=== PATIENT | female | born 1930 | race Caucasian/White ===

== ENCOUNTER → 2017-02-07 | Outpatient (CLI) | payer MEDICARE, OTHER | END | disposition home or self-care (01) | LOC: GMAH 10:47 | PROVIDERS: ATTEND Family Medicine | DX: E03.8 Other specified hypothyroidism (principal); E78.2 Mixed hyperlipidemia ==

== ENCOUNTER → 2017-07-20 | Outpatient (CLI) | payer MEDICARE, OTHER ==
--- NOTE | 2017-07-21 10:38 | CT ---
PROCEDURE: Head HISTORY: ALTERED MENTAL STATUS Indication: Same as above Comparison: None Technique: CT of the head was done without intravenous contrast was done in the orthogonal planes. This exam was performed according to our departmental dose-optimization program, which includes automated exposure control, adjustment of the mA and/or KV according to the patient's size and/or use of iterative reconstruction technique. FINDINGS: There is no intracranial hemorrhage, midline shift mass effect or acute focal infarct. There is prominence of the sylvian fissures and the cortical sulci reflecting age related volume loss. There is periventricular and deep white matter low attenuation, most likely related to small vessel white matter ischemic disease. Asymmetric left superior frontal lobe atrophy is noted Intracranial vascular calcifications are seen. If clinical concern exists regarding an acute ischemic/vascular pathology being responsible for patient's symptomatology, an MRI of the brain is more sensitive than the current study, in ruling out such a possibility. There is good dominique/white matter differentiation. The ventricular system is normal. The mastoid air cells are unremarkable . The paranasal sinuses are unremarkable . There is no visualization of acute fractures involving the calvarium or the skull base. IMPRESSION: There is no acute intracranial abnormality. Age related and chronic involutional changes are seen. 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
== END | disposition home or self-care (01) ==
LOC: CT 14:04
PROVIDERS: ATTEND Family Medicine
DX: R41.82 Altered mental status, unspecified (principal)

== ENCOUNTER → 2017-10-25 | Outpatient (CLI) | payer MEDICARE, OTHER ==
--- NOTE | 2017-10-26 07:39 | RAD ---
EXAM DESCRIPTION: Knee,Left Complete CLINICAL HISTORY: 87 years, Female, PAIN IN LEFT KNEE COMPARISON: None TECHNIQUE: Three views of the left knee FINDINGS: No fracture or dislocation. Bones appear mildly osteopenic with prominent trabecular pattern. Severe narrowing of the medial compartment is seen on the frontal view. Findings are consistent with complete cartilage loss with sclerosis and eburnation of the medial femoral condyle and medial tibial plateau. Osseous densities medial to the joint could be loose bodies or extruded calcified meniscus. Spurring is seen along the medial and lateral joint lines and at the tibial spines. There is varus orientation of the tibia and fibula relative to the femur. Lateral view shows normal position of the patella. Prominent posterior inferior patellar spurring is seen with anterior femoral trochlear spurring. Positive suprapatellar knee joint effusion of moderate size. Normal contour of quadriceps and patellar tendons. Mild lateral tilt of the patella is seen on patellar sunrise view. No subluxation. Spurring is seen along the medial and lateral aspects of the patellofemoral joint. IMPRESSION: Advanced osteoarthrosis of the left knee as described. Electronically signed by: Ramone Alvarez MD 10/26/2017 7:[address] [facility]
--- NOTE | 2017-10-26 07:40 | RAD ---
EXAM DESCRIPTION: Pelvis CLINICAL HISTORY: 87 years Female, PAIN IN LEFT HIP COMPARISON: None. TECHNIQUE: Frontal x-ray view of the pelvis FINDINGS: No hip dislocation or proximal femoral fracture. Intact bones of the pelvic ring. Degenerative narrowing of the lower lumbar discs is seen with incidental note of S1 spina bifida occulta. No sacral fracture. Pelvic calcifications are most likely vascular. IMPRESSION: Negative for fracture or dislocation. Electronically signed by: Ramone Alvarez MD 10/26/2017 7:39 AM [facility]
== END ==
LOC: RAD 09:05
PROVIDERS: ATTEND Orthopaedic Surgery
DX: M25.562 Pain in left knee (principal); M25.552 Pain in left hip; M17.12 Unilateral primary osteoarthritis, left knee

== ENCOUNTER → 2018-04-23 | Outpatient (CLI) | payer MEDICARE, OTHER | LOC: GMAH 11:14 | PROVIDERS: ATTEND Family Medicine | DX: E03.8 Other specified hypothyroidism (principal); E78.2 Mixed hyperlipidemia ==

== ENCOUNTER → 2018-06-11 | Outpatient (CLI) | payer MEDICARE, OTHER ==
--- NOTE | 2018-06-12 14:31 | MAM ---
EXAM DESCRIPTION: 3D Screening BILATERAL : Digital Mammography. CLINICAL HISTORY: 88 years Female SCREENING . Possible bloody left nipple discharge. Mother with breast cancer and remote family history of breast cancer. Childbirth. Postmenopausal. No HRT. Lifetime risk of developing breast cancer (Tyrer-Cuzick model)(%): Calculated due to age. COMPARISON: . 2-D digital screening bilateral study 07/17/2016 TECHNIQUE: Bilateral CC and MLO projection full-field images, Digital tomosynthesis mammographic technique. Bilateral digital 2-D full-field MLO images. CAD not utilized. FINDINGS: The breast parenchymal density pattern is: Scattered areas of fibroglandular density. No skin thickening or nipple retraction. . Bilateral solitary microcalcifications, bilateral secretory calcifications, and bilateral vascular calcifications. Coarse calcifications left breast. No new focal, stellate mass or density, focal asymmetry , and no suspicious microcalcifications bilaterally. Bilateral calcifications have increased since the prior study. IMPRESSION: Benign exam. BIRAD CATEGORY: 2 BENIGN FINDINGS. RECOMMENDATIONS: FOLLOW UP: Routine digital bilateral screening, one year interval from May 2018. Written communication explaining the IMPRESSION and follow-up, will be mailed to the patient and referring health care provider. According to the [employer], yearly mammograms are recommended starting at age 40 and continuing as long as a woman is in good health. Any breast change noted on a breast self-exam should be reported promptly to the patient's healthcare provider. Breast MRI is recommended for women with an approximately 20-25% or greater lifetime risk of breast cancer, including women with a strong family history of breast or ovarian cancer and women who have been treated for Hodgkin's disease. A negative mammographic report should not delay tissue diagnosis in patients with significant clinical history or physical findings. Extremely dense breast tissue limits the sensitivity of digital mammography. Electronically signed by: Prashant Rojas MD 06/12/2018 2:30 PM CDT
== END ==
LOC: MAMMO 08:30
PROVIDERS: ATTEND Family Medicine
DX: Z12.31 Encounter for screening mammogram for malignant neoplasm of breast (principal)

== ENCOUNTER → 2018-12-12 | Outpatient (CLI) | payer MEDICARE ==
--- NOTE | 2018-12-13 08:05 | RAD ---
EXAM DESCRIPTION: Left knee, 4 radiographs CLINICAL HISTORY: PAIN IN LEFT KNEE FINDINGS/ IMPRESSION: Severe medial femorotibial osteoarthritis with [id number] contact, sclerosis irregularity and joint line osteophytes. Small lateral femorotibial and moderate-sized patellofemoral osteophytes. Small suprapatellar joint effusion. Medial swelling. No fracture Electronically signed by: Edson Eng MD 12/13/2018 8:03 AM CDT
== END ==
LOC: RAD 10:01
PROVIDERS: ATTEND Orthopaedic Surgery
DX: M17.12 Unilateral primary osteoarthritis, left knee (principal)

== ENCOUNTER → 2018-12-17 | Outpatient (CLI) | payer MEDICARE ==
--- NOTE | 2018-12-18 08:06 | MRI ---
Study: MRI of the Left Knee. Indication: KNEE PAIN Technique: Multiplanar, multi sequence MRI of the left knee was obtained without intravenous contrast. Comparison: None. Findings: Moderate mucoid degeneration ACL with mild changes PCL. No acute tear. Large multilobulated ganglion versus para meniscal cyst tracking along the anteromedial joint line with significant uplifting of the MCL and medial retinaculum. It measures up to 7.2 cm AP by 6.2 cm transverse by 4.8 cm craniocaudal with marked internal septations and complexity. There is maceration and attenuation throughout the posterior horn and body medial meniscus. Severe medial compartment osteoarthritis with complete grade 4 chondral loss, significant cortical remodeling, and multifocal subchondral marrow change. Lateral collateral ligament complex intact. Subtle undersurface tear junction anterior horn and root lateral meniscus. Patchy areas of grade 3 chondral thinning and surface irregularity throughout the lateral compartment. Moderate size knee effusion. No acute fracture. Patellofemoral extensor mechanism intact. Patella normally located. There is a grade 1 and 2 chondral thinning throughout the patellofemoral compartment. Small tricompartmental joint line osteophytes. Impression: Mucoid degeneration ACL and PCL without acute tear. Maceration medial meniscus. Undersurface tearing anterior horn/root lateral meniscus. Tricompartmental osteoarthritis, most pronounced at the medial compartment where there are severe changes. Large multilobulated ganglion versus para meniscal cyst along the anteromedial joint line as above. Moderate size knee effusion. Electronically signed by: Bart Kaiser MD 12/18/2018 8:03 AM CDT
== END ==
LOC: MRI 13:01
PROVIDERS: ATTEND Orthopaedic Surgery
DX: M23.301 Other meniscus derangements, unspecified lateral meniscus, left knee (principal); S83.282A Other tear of lateral meniscus, current injury, left knee, initial encounter; M67.462 Ganglion, left knee; M17.12 Unilateral primary osteoarthritis, left knee

== ENCOUNTER → 2018-12-31 | Outpatient (CLI) | payer MEDICARE | LOC: RESP 09:26 | PROVIDERS: ATTEND Orthopaedic Surgery | DX: Z01.818 Encounter for other preprocedural examination (principal) ==

== ENCOUNTER 2019-01-29 21:09 | Emergency (ER) | payer MEDICARE ==
[2019-01-29] MEDS ORDERED: SODIUM CHLORIDE 0.9% (FLUSH) 10 ML SYG IV PRN (21:12)
--- NOTE | 2019-01-29 21:38 | CT ---
EXAM: CT Head Without Intravenous Contrast CLINICAL HISTORY: The patient is 89 years old and is Female; possible stroke TECHNIQUE: Axial computed tomography images of the head/brain without intravenous contrast. Sagittal and coronal reformatted images were created and reviewed. This CT exam was performed using one or more of the following dose reduction techniques: automated exposure control, adjustment of the mA and/or kV according to patient size, and/or use of iterative reconstruction technique. COMPARISON: July 20, 2017 FINDINGS: Brain: Periventricular and deep white matter hypodensities, most commonly due to nonspecific white matter chronic microvascular ischemia. Mild cerebral atrophy. No hemorrhage. Ventricles: Unremarkable. No ventriculomegaly. Bones/joints: Unremarkable. No acute fracture. Soft tissues: Unremarkable. Vasculature: Vascular calcifications. Sinuses: Unremarkable as visualized. No acute sinusitis. Mastoid air cells: Unremarkable as visualized. No mastoid effusion. IMPRESSION: No acute intracranial findings. Mild cerebral atrophy and nonspecific chronic microvascular ischemic changes. If there is persistent concern for acute ischemia recommend obtaining MRI for further evaluation. Electronically signed by: Gilberto Aguilar MD 01/29/2019 9:36 PM CDT
--- NOTE | 2019-01-29 21:39 | RAD ---
EXAM: XR Chest, 1 View CLINICAL HISTORY: 89 years old and is Female; possible stroke TECHNIQUE: Frontal view of the chest. COMPARISON: No relevant prior studies available. FINDINGS: Limitations: None. Lungs: Unremarkable. No consolidation. Pleural space: Unremarkable. No pneumothorax. Heart: Unremarkable. No cardiomegaly. Mediastinum: Unremarkable. Bones/joints: Unremarkable. IMPRESSION: No acute findings. Electronically signed by: Ashtyn Quintero MD 01/29/2019 9:37 PM CDT
--- NOTE | 2019-01-29 22:04 | ED.PDOC ---
History of Present Illness - General Chief Complaint: Neuro Symptoms/Deficits Stated Complaint: possible stroke Time Seen by Provider: 01/29/19 21:16 Source: family Exam Limitations: no limitations - History of Present Illness Initial Comments: Missy Narvaez 89 y/o female brought by EMS after she was found to have difficulty with her speech and was noted to have right sided facial droop as stated by jose a at about 1930H.Initially she was in her chair watching TV but but asked where the remote control was and was holding unto it unable to name recall it.then had above symptoms.No upper or lower extremity weakness,no blurry vision reported .EMS was then called and on their arrival symptoms had gradually been resolving.No history of previous CVA or AK. Timing/Duration: 1-3 hours Severity: moderate Episode Description: see hpi Improving Factors: nothing Worsening Factors: nothing Associated Symptoms: other - see hpi Allergies/Adverse Reactions: Allergies No Known Drug Allergy Allergy (Verified 01/29/19 22:05) Home Medications: Ambulatory Orders Amlodipine Besylate 1 tablet PO DAILY 01/27/19 Azilsartan Medoxomil-Chlorthal [Edarbyclor] 1 tab PO DAILY 01/27/19 Digoxin [Digox] 1 tablet PO DAILY 01/27/19 Donepezil Hydrochloride [Donepezil HCl] 1 tablet PO DAILY 01/27/19 Fenofibrate 160 mg PO DAILY 01/27/19 Levothyroxine Sodium [Euthyrox] 100 mcg PO DAILY 01/27/19 Lovastatin 1 tablet PO DAILY 01/27/19 Metoprolol Tartrate [Lopressor] 25 tablet PO BID 01/27/19 Pantoprazole Tablet [Protonix] 40 mg PO ACBK 01/27/19 Propylene Glycol (Ophth) [Systane Balance Restorati] 0.6 % OP DAILY 01/27/19 diphenhydrAMINE HCL [Benadryl] 25 mg PO PRN 01/27/19 Review of Systems - Review of Systems Constitutional: States: no symptoms reported EENTM: States: no symptoms reported Respiratory: States: no symptoms reported Cardiology: States: no symptoms reported Gastrointestinal/Abdominal: States: no symptoms reported Genitourinary: States: no symptoms reported Musculoskeletal: States: no symptoms reported Neurological: States: see HPI Past Medical History (General) - Patient Medical History Hx Cardiac Disorders: Yes Hx Other PMH: Yes - hypothyroidism Surgical History: appendectomy, cholecystectomy, tonsillectomy, other - hysterectomy,cataract - Vaccination History Hx Influenza Vaccination: Yes - Social History Hx Alcohol Use: No Hx Substance Use: No Hx Physical Abuse: No Hx Emotional Abuse: No Hx Suspected Abuse: No - Activities of Daily Living Patient Lives Alone: No Grooming Ability: Independent Eating (Feeding) Ability: Independent Toileting Ability: Independent Family Medical History - Family History Mother Living Status: Cause of : stroke Hx Family Stroke: Yes Physical Exam - Physical Exam General Appearance: Alert, Comfortable, No apparent distress Eye Exam: bilateral normal ENT Exam: normal ENT inspection, hearing grossly normal Neck: non-tender, supple, other - right carotid bruit Respiratory: lungs clear, normal breath sounds, no respiratory distress Cardiovascular/Chest: normal peripheral pulses, regular rate, rhythm, no murmur, diastolic murmur Peripheral Pulses: radial,right: 2+, radial,left: 2+ Gastrointestinal/Abdominal: normal bowel sounds, non tender, soft, no organomegaly Back Exam: no CVA tenderness, no vertebral tenderness Extremities Exam: non-tender, normal range of motion Mental Status: alert, oriented x 3 health claims 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 Exam: normal hearing, normal speech Motor/Sensory: no motor deficit, no sensory deficit, no pronator drift Skin Exam: normal color, warm/dry Progress - Progress Progress: 01/29/19 22:18 01/29/19 21:12 IV Care:Saline Lock per Protoc QSHIFT Telemetry .ONCE Sodium Chloride 0.9% (Flush) [Saline Flush Syringe] 10 ml IV PRN PRN 01/29/19 21:15 EKG STAT 01/29/19 22:04 DIGOXIN Stat 01/29/19 22:12 TSH [THYROID STIMULATING HORMONE] Stat Laboratory Results - last 24 hr 01/29/19 01/29/19 01/29/19 21:05 21:05 21:05 WBC 5.9 RBC 4.44 Hgb 12.6 Hct 38.4 MCV 86.6 MCH 28.5 MCHC 32.9 L RDW 13.7 Plt Count 302 MPV 8.7 Absolute Neuts (auto) 2.60 Absolute Lymphs (auto) 2.40 Absolute Monos (auto) 0.70 Absolute Eos (auto) 0.10 Absolute Basos (auto) 0.00 Neutrophils % 44.7 Lymphocytes % 41.2 Monocytes % 12.4 H Eosinophils % 1.1 Basophils % 0.6 PT 10.4 INR 1.04 PTT (SP) 27.7 Sodium 132 L Potassium 4.0 Chloride 97 L Carbon Dioxide 22 Anion Gap 17.0 BUN 32 H Creatinine 1.25 BUN/Creatinine Ratio 25.6 H POC Glucose Random Glucose 119 H Serum Osmolality 272.6 L Calcium 10.5 H Total Bilirubin 0.7 AST 23 ALT 25 Alkaline Phosphatase 29 L Creatine Kinase 132 CK-MB (CK-2) 5.7 H* CK-MB (CK-2) % Not Reportable Troponin I 0.02 Serum Total Protein 7.7 Albumin 4.2 Globulin 3.5 Albumin/Globulin Ratio 1.2 01/29/19 21:05 WBC RBC Hgb Hct MCV MCH MCHC RDW Plt Count MPV Absolute Neuts (auto) Absolute Lymphs (auto) Absolute Monos (auto) Absolute Eos (auto) Absolute Basos (auto) Neutrophils % Lymphocytes % Monocytes % Eosinophils % Basophils % PT INR PTT (SP) Sodium Potassium Chloride Carbon Dioxide Anion Gap BUN Creatinine BUN/Creatinine Ratio POC Glucose 107 H Random Glucose Serum Osmolality Calcium Total Bilirubin AST ALT Alkaline Phosphatase Creatine Kinase CK-MB (CK-2) CK-MB (CK-2) % Troponin I Serum Total Protein Albumin Globulin Albumin/Globulin Ratio 01/29/19 22:22 Discuss case with neurologist-telemedicine and called back no indication for t- pa at this time her neurologic abnormalities resolved ;recommended admit for hospital OBS and Brain MRI in am 01/29/19 22:55 - Results/Orders Results/Orders: 01/29/19 21:05 TSH [THYROID STIMULATING HORMONE] Stat 01/29/19 21:12 IV Care:Saline Lock per Protoc QSHIFT Telemetry .ONCE Sodium Chloride 0.9% (Flush) [Saline Flush Syringe] 10 ml IV PRN PRN 01/29/19 21:15 EKG STAT 01/29/19 22:45 UA [URINALYSIS] Stat Laboratory Results - last 24 hr 01/29/19 01/29/19 01/29/19 21:05 21:05 21:05 WBC 5.9 RBC 4.44 Hgb 12.6 Hct 38.4 MCV 86.6 MCH 28.5 MCHC 32.9 L RDW 13.7 Plt Count 302 MPV 8.7 Absolute Neuts (auto) 2.60 Absolute Lymphs (auto) 2.40 Absolute Monos (auto) 0.70 Absolute Eos (auto) 0.10 Absolute Basos (auto) 0.00 Neutrophils % 44.7 Lymphocytes % 41.2 Monocytes % 12.4 H Eosinophils % 1.1 Basophils % 0.6 PT 10.4 INR 1.04 PTT (SP) 27.7 Sodium 132 L Potassium 4.0 Chloride 97 L Carbon Dioxide 22 Anion Gap 17.0 BUN 32 H Creatinine 1.25 BUN/Creatinine Ratio 25.6 H POC Glucose Random Glucose 119 H Serum Osmolality 272.6 L Calcium 10.5 H Total Bilirubin 0.7 AST 23 ALT 25 Alkaline Phosphatase 29 L Creatine Kinase 132 CK-MB (CK-2) 5.7 H* CK-MB (CK-2) % Not Reportable Troponin I 0.02 Serum Total Protein 7.7 Albumin 4.2 Globulin 3.5 Albumin/Globulin Ratio 1.2 Digoxin 01/29/19 01/29/19 21:05 21:05 WBC RBC Hgb Hct MCV MCH MCHC RDW Plt Count MPV Absolute Neuts (auto) Absolute Lymphs (auto) Absolute Monos (auto) Absolute Eos (auto) Absolute Basos (auto) Neutrophils % Lymphocytes % Monocytes % Eosinophils % Basophils % PT INR PTT (SP) Sodium Potassium Chloride Carbon Dioxide Anion Gap BUN Creatinine BUN/Creatinine Ratio POC Glucose 107 H Random Glucose Serum Osmolality Calcium Total Bilirubin AST ALT Alkaline Phosphatase Creatine Kinase CK-MB (CK-2) CK-MB (CK-2) % Troponin I Serum Total Protein Albumin Globulin Albumin/Globulin Ratio Digoxin 1.4 - EKG/XRAY/CT EKG: Sinus, RBBB Comments: HR-74 XRAY: chest - no acute findings CT Ordered: Yes - head-chronic microvascular ischemic changes Stroke Information - Contraindications t-PA Contraindication: Drug Tx Not Indicated Departure - Departure Clinical Impression: Transient ischemic attack (TIA), Systolic hypertension Time of Disposition: 22:54 Disposition: Admit Patient Condition: Fair Departure Forms: Patient Portal Self Enrollment Referrals: Ricci Joyce MD [Primary Care Provider] - 1-2 Weeks Home Medications: Ambulatory Orders Amlodipine Besylate 1 tablet PO DAILY 01/27/19 Azilsartan Medoxomil-Chlorthal [Edarbyclor] 1 tab PO DAILY 01/27/19 Digoxin [Digox] 1 tablet PO DAILY 01/27/19 Donepezil Hydrochloride [Donepezil HCl] 1 tablet PO DAILY 01/27/19 Fenofibrate 160 mg PO DAILY 01/27/19 Levothyroxine Sodium [Euthyrox] 100 mcg PO DAILY 01/27/19 Lovastatin 1 tablet PO DAILY 01/27/19 Metoprolol Tartrate [Lopressor] 25 tablet PO BID 01/27/19 Pantoprazole Tablet [Protonix] 40 mg PO ACBK 01/27/19 Propylene Glycol (Ophth) [Systane Balance Restorati] 0.6 % OP DAILY 01/27/19 diphenhydrAMINE HCL [Benadryl] 25 mg PO PRN 01/27/19 Decision To Admit - Decistion To Admit Decision to Admit Reason: Admit from ER Decision to Admit Date: 01/29/19 - D/W Reba Rivera -TON/Hospitalist Decision to Admit Time: 22:51
[2019-01-29] MEDS ORDERED: cloNIDine HCL 0.1 MG TAB PO ONE (22:12)
[2019-01-30 01:42] VITALS: BP 149/47; O2SAT 97
[2019-01-30 02:02] VITALS: TEMP 97.7
== END 2019-01-30 01:47 | disposition short-term general hospital (02) ==
LOC: ER 21:09 → UNDOADMOB 23:02 → MS 23:02
DX: G45.9 Transient cerebral ischemic attack, unspecified (principal); I10 Essential (primary) hypertension; I45.10 Unspecified right bundle-branch block; I51.9 Heart disease, unspecified; E03.9 Hypothyroidism, unspecified; Z79.899 Other long term (current) drug therapy

== ENCOUNTER 2019-02-01 15:19 | Inpatient (IN) | payer MEDICARE ==
[2019-02-01] MEDS ORDERED: ACETAMINOPHEN 500 MG TAB PO PRN (18:26)
[2019-02-01] MEDS ORDERED: MAGNESIUM HYDROXIDE 30 ML UD PO PRN (18:26)
[2019-02-01] MEDS ORDERED: SODIUM PHOS/BIPHOS ENEMA ADULT 133 ML BTTL PR PRN (18:26)
[2019-02-01] MEDS ORDERED: METOPROLOL TARTRATE 25 MG TAB PO SCH ×2 (21:00→21:20)
[2019-02-01] MEDS ORDERED: PROPYLENE GLYCOL OP SCH (21:00)
[2019-02-01] MEDS: diphenhydrAMINE HCL 25 MG CAP PO PRN (21:25)
[2019-02-01] MEDS: DONEPEZIL HCL 5 MG TAB PO SCH (21:25)
[2019-02-02] MEDS: LEVOTHYROXINE SODIUM 0.1 MG TAB PO SCH (06:06)
[2019-02-02] MEDS: PANTOPRAZOLE SODIUM TAB 40 MG PO SCH (06:32)
[2019-02-02] MEDS ORDERED: DONEPEZIL HCL 5 MG TAB PO SCH (09:00)
[2019-02-02] MEDS: METOPROLOL TARTRATE 25 MG TAB PO SCH ×2 (09:24→17:57)
[2019-02-02] MEDS: DOCUSATE SODIUM 100 MG CAP PO SCH (09:25)
[2019-02-02] MEDS: amLODIPine BESYLATE 5 MG TAB PO SCH (09:25)
[2019-02-02] MEDS: DONEPEZIL HCL 5 MG TAB PO SCH (09:25)
[2019-02-02] MEDS: POLYETHYLENE GLYCOL 3350 17 GM PCKT PO SCH (09:25)
[2019-02-02] MEDS: ASPIRIN (ENTERIC COATED) 81 MG TAB PO SCH (09:25)
[2019-02-02] MEDS: FENOFIBRIC ACID 135 MG CAP PO SCH (09:25)
[2019-02-02] MEDS: [UNRECOGNIZED DRUG - OTHER] PO SCH (10:03)
[2019-02-02] MEDS: CHLORTHALIDONE PO SCH (10:03)
[2019-02-02] MEDS: POLYETHY-PROP GLYCOL OPHTH SOL 1 DROP BOTH_EYES SCH ×2 (12:03→21:34)
[2019-02-02] MEDS: DIGOXIN 0.125 MG TAB PO SCH (13:15)
[2019-02-02] MEDS: diphenhydrAMINE HCL 25 MG CAP PO PRN (21:34)
[2019-02-02] MEDS: SIMVASTATIN 20 MG TAB PO SCH (21:34)
[2019-02-03] MEDS: LEVOTHYROXINE SODIUM 0.1 MG TAB PO SCH (06:38)
[2019-02-03] MEDS: PANTOPRAZOLE SODIUM TAB 40 MG PO SCH (06:38)
[2019-02-03] MEDS: METOPROLOL TARTRATE 25 MG TAB PO SCH ×2 (07:22→17:10)
[2019-02-03] MEDS: POLYETHY-PROP GLYCOL OPHTH SOL 1 DROP BOTH_EYES SCH ×2 (08:14→20:43)
[2019-02-03] MEDS: amLODIPine BESYLATE 5 MG TAB PO SCH (08:14)
[2019-02-03] MEDS: FENOFIBRIC ACID 135 MG CAP PO SCH (08:15)
[2019-02-03] MEDS: ASPIRIN (ENTERIC COATED) 81 MG TAB PO SCH (08:15)
[2019-02-03] MEDS: DOCUSATE SODIUM 100 MG CAP PO SCH (08:15)
[2019-02-03] MEDS: [UNRECOGNIZED DRUG - OTHER] PO SCH (08:15)
[2019-02-03] MEDS: DONEPEZIL HCL 5 MG TAB PO SCH (08:15)
[2019-02-03] MEDS: CHLORTHALIDONE PO SCH (08:15)
[2019-02-03] MEDS: POLYETHYLENE GLYCOL 3350 17 GM PCKT PO SCH (09:04)
[2019-02-03] MEDS: DIGOXIN 0.125 MG TAB PO SCH (12:09)
[2019-02-03] MEDS: SIMVASTATIN 20 MG TAB PO SCH (20:43)
[2019-02-04] MEDS: PANTOPRAZOLE SODIUM TAB 40 MG PO SCH (06:25)
[2019-02-04] MEDS: LEVOTHYROXINE SODIUM 0.1 MG TAB PO SCH (06:25)
[2019-02-04] MEDS: METOPROLOL TARTRATE 25 MG TAB PO SCH ×2 (07:32→16:41)
--- NOTE | 2019-02-04 08:06 | HP ---
SUPERVISING PHYSICIAN: Jong Howard MD CHIEF COMPLAINT: Weakness due to recent cerebrovascular accident requiring physical therapy and Swing Bed admission. HISTORY OF PRESENT ILLNESS: This is an 89-year-old female patient who came to the Emergency Room last week due to some stroke-like symptoms. She had some difficulty with her speech with a right sided facial droop. She actually had been admitted to our hospital and was being taken to her room and there was a notable change in her mental status. She was taken back to the Emergency Room and was eventually sent to [facility] where she was treated for a frontal CVA. She initially had some expressive aphasia, but that has since improved. She completed her stay in [place] and requested that she do her rehab at our hospital as a Swing Bed patient. Today, she was transferred from [facility] in [place] to [facility] for Swing Bed admission. PAST MEDICAL HISTORY: 1. Hyperlipidemia. 2. Hypertension. 3. Hypothyroidism. 4. Accelerated heart rate, unknown if atrial fibrillation or supraventricular tachycardia. PAST SURGICAL HISTORY: 1. Cholecystectomy. 2. Hysterectomy. 3. Appendectomy. 4. Bilateral cataract removal. MEDICATIONS: 1. Amlodipine. 2. Aspirin. 3. Azilsartan-Chlorthalidone. 4. Digoxin. 5. Diphenhydramine. 6. Donepezil. 7. Fenofibrate. 8. Levothyroxine. 9. Lovastatin. 10. Metoprolol. 11. Pantoprazole. 12. Propylene Glycol ophthalmic. ALLERGIES: NO KNOWN DRUG ALLERGIES. FAMILY HISTORY: Positive for breast cancer. SOCIAL HISTORY: She is . She lives in [place]. There is no history of tobacco, ETOH or illicit drug use. REVIEW OF SYSTEMS: Negative except generalized weakness. PHYSICAL EXAMINATION: VITAL SIGNS: Temperature 97.7. Heart rate 72. Blood pressure 150/64. Respiratory rate 18. O2 saturation 96% on room air. GENERAL: This is an 89-year-old female patient who is sitting up on the side of her bed. She is in no acute distress. HEENT: Normocephalic, atraumatic. Pupils are equal and reactive. Oropharynx is clear. Oral mucous membranes are moist. NECK: Supple without mass. RESPIRATORY: Essentially clear to auscultation bilaterally. CARDIOVASCULAR: Regular rate and rhythm. GASTROINTESTINAL: Abdomen is soft, nondistended, nontender. Bowel sounds are positive. EXTREMITIES: No cyanosis, clubbing or edema. SKIN: Warm and dry. NEUROLOGIC: Awake, alert and oriented times three. She has normal speech, she is slightly hard of hearing. Advisor [employer] are equal bilaterally. There is equal strength in her lower extremities. Cranial nerves II-XII are grossly intact. LABORATORY: There are no labs or films to review at this time. IMPRESSION: 1. Recent frontal cerebrovascular accident, initially with expressive aphasia that is now resolved. 2. Hypertension on medication. 3. Hyperlipidemia on medication. 4. Hypothyroidism on supplementation. 5. Mild dementia on medication. PLAN: We will admit the patient to the hospital in Swing Bed. She will have physical therapy for strengthening and conditioning. Her home medications have been restarted. She will be discharged at the discretion of Physical Therapy when has gotten to the point where she can be independent at home and we will follow the recommendations of Physical Therapy. Otherwise, we will continue to monitor the patient closely and follow as needed. #[id number] [facility]
[2019-02-04] MEDS: FENOFIBRIC ACID 135 MG CAP PO SCH (09:26)
[2019-02-04] MEDS: ASPIRIN (ENTERIC COATED) 81 MG TAB PO SCH (09:26)
[2019-02-04] MEDS: amLODIPine BESYLATE 5 MG TAB PO SCH (09:26)
[2019-02-04] MEDS: [UNRECOGNIZED DRUG - OTHER] PO SCH (09:26)
[2019-02-04] MEDS: DONEPEZIL HCL 5 MG TAB PO SCH (09:26)
[2019-02-04] MEDS: POLYETHY-PROP GLYCOL OPHTH SOL 1 DROP BOTH_EYES SCH ×2 (09:26→20:34)
[2019-02-04] MEDS: CHLORTHALIDONE PO SCH (09:26)
[2019-02-04] MEDS: DOCUSATE SODIUM 100 MG CAP PO SCH (09:26)
[2019-02-04] MEDS: POLYETHYLENE GLYCOL 3350 17 GM PCKT PO SCH (09:27)
[2019-02-04] MEDS: DIGOXIN 0.125 MG TAB PO SCH (12:28)
[2019-02-04] MEDS: SIMVASTATIN 20 MG TAB PO SCH (20:34)
[2019-02-04] MEDS: diphenhydrAMINE HCL 25 MG CAP PO PRN (20:34)
[2019-02-04 23:48] VITALS: BP 129/57; TEMP 97.9
[2019-02-05] MEDS: PANTOPRAZOLE SODIUM TAB 40 MG PO SCH ×2 (06:27→06:32)
[2019-02-05] MEDS: LEVOTHYROXINE SODIUM 0.1 MG TAB PO SCH (06:31)
[2019-02-05] MEDS: METOPROLOL TARTRATE 25 MG TAB PO SCH (09:14)
[2019-02-05] MEDS: POLYETHYLENE GLYCOL 3350 17 GM PCKT PO SCH (09:23)
[2019-02-05] MEDS: FENOFIBRIC ACID 135 MG CAP PO SCH (09:25)
[2019-02-05] MEDS: DONEPEZIL HCL 5 MG TAB PO SCH (09:25)
[2019-02-05] MEDS: ASPIRIN (ENTERIC COATED) 81 MG TAB PO SCH (09:25)
[2019-02-05] MEDS: DOCUSATE SODIUM 100 MG CAP PO SCH (09:25)
[2019-02-05] MEDS: amLODIPine BESYLATE 5 MG TAB PO SCH (09:25)
[2019-02-05] MEDS: CHLORTHALIDONE PO SCH (09:28)
[2019-02-05] MEDS: [UNRECOGNIZED DRUG - OTHER] PO SCH (09:28)
[2019-02-05] MEDS: POLYETHY-PROP GLYCOL OPHTH SOL 1 DROP BOTH_EYES SCH (09:30)
[2019-02-05 09:32] VITALS: O2SAT 98
--- NOTE | 2019-02-05 10:02 | DS ---
SUPERVISING PHYSICIAN: Hany Biggs MD ADMISSION DIAGNOSIS: 1. Recent frontal cerebrovascular accident. 2. Hypertension. 3. Hyperlipidemia. 4. Hypothyroidism. 5. Mild dementia on medication. DISCHARGE DIAGNOSIS: 1. Recent frontal cerebrovascular accident. 2. Hypertension. 3. Hyperlipidemia. 4. Hypothyroidism. 5. Mild dementia on medication. 6. Debility secondary to #1. HOSPITAL COURSE: This is an 89-year-old female who came to the Emergency Room here last week due to history of stroke-like symptoms with aphasia and facial drooping. She was taken to [facility] for treatment for a frontal cerebrovascular accident. After that admission, she was referred here for Swing Bed for rehab. She participated in physical therapy and rehab while here under Swing Bed admission. She progressed to the point that she was discharged today with home health. She is getting a bedside commode as well as a two-wheeled walker for assistance with ambulation and mobility due to debilitation from her cerebrovascular accident and need for further strengthening. She will be going home on her current medications and followup with Dr. Joyce in one to two weeks. Diet will be unchanged. Activity as per physical therapy. #[id number] [facility]
== END 2019-02-05 11:30 | disposition home health service (06) | DRG 57 ==
LOC: LAB.O 15:19 → MS 15:22
PROVIDERS: ADMIT Nurse Practitioner Acute Care; ATTEND Nurse Practitioner
DX: I69.398 Other sequelae of cerebral infarction (principal); R53.81 Other malaise; R26.9 Unspecified abnormalities of gait and mobility; I10 Essential (primary) hypertension; E78.5 Hyperlipidemia, unspecified; E03.9 Hypothyroidism, unspecified; F03.90 Unspecified dementia, unspecified severity, without behavioral disturbance, psychotic disturbance, mood disturbance, and anxiety; Z66 Do not resuscitate; Z79.82 Long term (current) use of aspirin; Z79.899 Other long term (current) drug therapy

== ENCOUNTER → 2019-02-17 | Outpatient (CLI) | payer MEDICARE ==
--- NOTE | 2019-02-17 17:00 | MAM ---
EXAM DESCRIPTION: 3D Diagnostic, Left (accession [id number]), Breast,Left (accession [id number]): Ultrasound CLINICAL HISTORY: 89 yearsFemaleBLEEDING occasional spotting of blood from left breast on brassiere. . No mass. Mother with breast cancer. No personal history of breast cancer. Childbirth. Postmenopausal 35+ years. HRT 5 or more years ago. Lifetime risk of developing breast cancer (Tyrer-Cuzick model)(%): Not calculated due to patient age greater than 85 years. COMPARISON: Bilateral screening digital breast tomosynthesis 06/11/2018. TECHNIQUE: Left breast LM, MLO, and CC projection full-field images, digital mammographic tomosynthesis technique. Left breast 2-D digital full-field MLO images. CAD not available . Transcutaneous scanning of the left breast utilizing dominique-scale and Doppler modes. Scanning performed by the aboriginal education worker coordinator and Dr. Rojas. FINDINGS: Left breast parenchymal density pattern is: Scattered areas of fibroglandular density. No skin thickening or nipple retraction large vascular calcifications. Large rim calcified nodules. Small solitary microcalcifications. No new focal, stellate mass or density, focal asymmetry , and no suspicious microcalcifications left breast. No retroareolar mammographic abnormality. Ultrasound: Scanning of the retroareolar left breast all 4 quadrants. Small ducts some dilated. No dominant solid mass or distinct cyst. No parenchymal edema or large calcifications. No overlying skin changes. Normal vascularity. IMPRESSION: Benign exam. BIRAD CATEGORY: 2 BENIGN FINDINGS. RECOMMENDATIONS: FOLLOW UP: Return to routine digital bilateral mammographic screening, May 2019. Written communication explaining the IMPRESSION and follow-up, will be mailed to the patient and referring health care provider. The FINDINGS and the FOLLOW-UP plan were reviewed in person with the patient after the examination. According to the [employer], yearly mammograms are recommended starting at age 40 and continuing as long as a woman is in good health. Any breast change noted on a breast self-exam should be reported promptly to the patient's healthcare provider. Breast MRI is recommended for women with an approximately 20-25% or greater lifetime risk of breast cancer, including women with a strong family history of breast or ovarian cancer and women who have been treated for Hodgkin's disease. A negative mammographic report should not delay tissue diagnosis in patients with significant clinical history or physical findings. Extremely dense breast tissue limits the sensitivity of digital mammography. Electronically signed by: Prashant Rojas MD 02/17/2019 4:58 PM CDT
== END ==
LOC: US 13:30
PROVIDERS: ATTEND Surgery
DX: N64.59 Other signs and symptoms in breast (principal)
CPT/HCPCS: 76641; 77065; G0279

== ENCOUNTER → 2019-02-27 | Outpatient (CLI) | payer MEDICARE | LOC: BFHH 16:47 | PROVIDERS: ATTEND Family Medicine | DX: I10 Essential (primary) hypertension (principal); I25.10 Atherosclerotic heart disease of native coronary artery without angina pectoris ==

== ENCOUNTER → 2019-05-02 | Outpatient (CLI) | payer MEDICARE | LOC: LAB.O 16:53 | PROVIDERS: ATTEND Nurse Practitioner Family | DX: R35.0 Frequency of micturition (principal); R19.7 Diarrhea, unspecified ==

== ENCOUNTER 2019-08-29 15:14 | Emergency (ER) | payer MEDICARE ==
--- NOTE | 2019-08-29 16:04 | RAD ---
EXAM DESCRIPTION: Chest,2 Views CLINICAL HISTORY: 89 years Female, cough hypoxia COMPARISON: 01/29/2019 TECHNIQUE: 2 view radiograph of the chest. IMPRESSION: Stable size cardiac silhouette. Partially calcified and mildly tortuous aorta. Lungs appear hyperinflated. Nonspecific moderate bilateral perihilar interstitial prominence which can be seen with early pulmonary edema versus infection such as bronchitis or reactive airway disease. Additionally, there is mild opacification of the medial right lower lung which may represent atelectasis versus pneumonia or aspiration. No lobar consolidation left lung. No pleural effusion or pneumothorax. Thoracic spondylosis. Surgical clip stable in the right upper abdomen. Electronically signed by: Evgeny Villasenor MD 08/29/2019 4:02 PM [employer]
[2019-08-29] MEDS: POTASSIUM CHLORIDE ELIXIR 20 MEQ/15 ML UD PO ONE ×3 (16:09→20:03)
[2019-08-29] MEDS ORDERED: IPRATROPIUM/ALBUTEROL 3 ML VIAL NEB ONE (16:14)
[2019-08-29] MEDS ORDERED: AZITHROMYCIN IV 500 MG in SODIUM CHLORIDE 0.9% 250ML 250 ML IVPB ONE (17:05)
[2019-08-29] MEDS ORDERED: SODIUM CHLORIDE 0.9% 250ML 250 ML ONE (17:18)
[2019-08-29] MEDS ORDERED: AZITHROMYCIN IV 500 MG VIAL IVPB ONE (17:18)
--- NOTE | 2019-08-29 19:05 | ED.PDOC ---
History of Present Illness - General Chief Complaint: Respiratory Problem Time Seen by Provider: 08/29/19 15:21 Source: patient, family Exam Limitations: clinical condition - History of Present Illness Initial Comments: the patient is an 89-year-old female with mild dementia presenting secondary to 3-4 days of cough and some progressive shortness of breath. No real fevers. She did have a runny nose but no real sore throat. No syncope or near syncope. No history of trauma. No chest pain. She does have a history of some congestive heart failure for which she sees Dr. Saunders. She also has a history of hypertension, hypothyroidism, a stroke in the past and again the mild dementia. She has had atrial fibrillation in the past but is currently in a normal sinus rhythm. No evidence of fever here or at home. No chills.oxygen saturations do drop to around 80% on room air. No significant history of COPD and no oxygen dependency before. Timing/Duration: other - 3 days Severity: moderate Improving Factors: nothing Worsening Factors: nothing Associated Symptoms: cough, malaise, shortness of breath Allergies/Adverse Reactions: Allergies No Known Drug Allergy Allergy (Verified 01/29/19 22:05) Home Medications: Ambulatory Orders Azilsartan Medoxomil-Chlorthal [Edarbyclor] 1 tab PO DAILY 01/27/19 Digoxin [Digox] 1 tablet PO DAILY 01/27/19 Levothyroxine Sodium [Euthyrox] 100 mcg PO DAILY 01/27/19 Lovastatin 1 tablet PO DAILY 01/27/19 Metoprolol Tartrate [Lopressor] 25 tablet PO BID 01/27/19 Pantoprazole Tablet [Protonix] 40 mg PO ACBK 01/27/19 Propylene Glycol (Ophth) [Systane Balance Restorati] 0.6 % OP BID 01/27/19 diphenhydrAMINE HCL [Benadryl] 25 mg PO BEDTIME PRN 01/27/19 Amlodipine Besylate 10 mg PO DAILY 02/01/19 Aspirin [Aspirin Adult Low Dose] 81 mg PO DAILY 02/01/19 Review of Systems - Review of Systems Constitutional: States: malaise EENTM: States: nose congestion Respiratory: States: cough, short of breath Cardiology: States: no symptoms reported, see HPI Gastrointestinal/Abdominal: States: no symptoms reported Genitourinary: States: no symptoms reported Musculoskeletal: States: no symptoms reported Skin: States: no symptoms reported Neurological: States: no symptoms reported Endocrine: States: no symptoms reported All other Systems: No Change from Baseline Past Medical History (General) - Patient Medical History Hx Seizures: No Hx Stroke: Yes - 3 Months ago Hx Dementia: No Hx Asthma: No Hx of COPD: No Hx Cardiac Disorders: Yes - A Fib Hx Congestive Heart Failure: No Hx Pacemaker: No Hx Hypertension: Yes Hx Thyroid Disease: No Hx Diabetes: No Hx Gastroesophageal Reflux: No Hx Renal Disease: No Hx Cancer: No Hx of HIV: No Hx Hepatitis C: No Hx MRSA: No Surgical History: appendectomy, cholecystectomy, tonsillectomy, Hysterectomy - Vaccination History Hx Tetanus, Diphtheria Vaccination: No Hx Influenza Vaccination: Yes Hx Pneumococcal Vaccination: Yes - Social History Hx Tobacco Use: No Hx Chewing Tobacco Use: No Hx Alcohol Use: No Hx Substance Use: No Hx Substance Use Treatment: No Hx Depression: No Feels Threatened In Home Enviroment: No Feels Threatened In a Relationship: No Hx Physical Abuse: No Hx Emotional Abuse: No Hx Suspected Abuse: No - Female History Patient is a Female of Child Bearing Age (10 -59 yrs old): No Patient : No Family Medical History - Family History Mother Living Status: Cause of : stroke Hx Family Stroke: Yes Hx Family;Other: NONE Physical Exam - Physical Exam General Appearance: Alert, Frail Eye Exam: bilateral normal Ears, Nose, Throat: hearing grossly normal, nasal congestion Neck: full range of motion, supple Respiratory: no respiratory distress, no accessory muscle use, rhonchi - very significant rhonchi scattered throughout the lung ludwig. Air movement is fair. She does not appear to be in respiratory distress. Cardiovascular/Chest: normal peripheral pulses, regular rate, rhythm, no edema Peripheral Pulses: radial,right: 2+, radial,left: 2+, dorsalis pedis,right: 2+, dorsalis pedis,left: 2+ Gastrointestinal/Abdominal: non tender, soft Rectal Exam: deferred Back Exam: no CVA tenderness, no vertebral tenderness Extremity: non-tender, normal inspection, no pedal edema, normal capillary refill Neurologic: pharmacy ancillary II-XII nml as tested, alert, normal mood/affect, oriented x 3, other - mild chronic dementia Skin Exam: normal color Comments: Vital Signs - 24 hr 08/29/19 08/29/19 08/29/19 15:23 16:15 17:00 Temperature 96.4 F L Pulse Rate Pulse Rate [L 74 73 71 Finger] Respiratory 20 18 18 Rate Blood Pressure 168/54 153/61 144/76 [Left Radial Artery] O2 Sat by Pulse 81 L 90 L 96 Oximetry 08/29/19 08/29/19 17:17 18:00 Temperature Pulse Rate 74 Pulse Rate [L 86 Finger] Respiratory 18 20 Rate Blood Pressure 151/95 [Left Radial Artery] O2 Sat by Pulse 95 98 Oximetry Progress - Progress Progress: 08/29/19 19:08 the patient's 89-year-old female presenting to the emergency room secondary to increasing cough and shortness of breath over the last few days. I believe this is primarily a fairly severe bronchitis. The patient has had a couple of breathing treatments did not really help all that much. Chest x-ray along with cardiac enzymes and BNP do not appear to support a CHF exacerbation however she does have a history of CHF and takes medications directed towards it. I am concerned that this may be significantly present regardless, in the background however, and am transferring the patient so that she can have an echocardiogram to make sure that we are not missing a significant secondary source here. The bronchitis is most likely viral. White blood cell count is within normal limits. She has tested negative for the flu but may benefit from a more extensive viral panel if available. For now she is being placed on azithromycin to cover atypical bacterial pathologies for the bronchitis. cultures are being collected. She is requiring supplemental oxygen by mask as she is unable to breathe through her nose. Transferring for higher level of care. - Results/Orders Results/Orders: 08/29/19 15:26 Telemetry .CONTINUOUS 08/29/19 15:30 EKG STAT 08/29/19 15:40 BLOOD CULTURE Stat 08/29/19 17:06 SPUTUM CULTURE Stat Laboratory Results - last 24 hr 08/29/19 08/29/19 08/29/19 15:40 15:40 15:40 WBC 7.7 RBC 4.47 Hgb 12.2 Hct 38.0 MCV 85.1 MCH 27.4 MCHC 32.2 L RDW 13.5 Plt Count 243 MPV 8.5 Absolute Neuts (auto) 5.10 Absolute Lymphs (auto) 2.00 Absolute Monos (auto) 0.60 Absolute Eos (auto) 0.00 Absolute Basos (auto) 0.00 Neutrophils % 66.5 Lymphocytes % 25.9 Monocytes % 7.2 Eosinophils % 0.1 L Basophils % 0.3 Sodium 136 Potassium 3.0 L Chloride 94 L Carbon Dioxide 29 Anion Gap 16.0 BUN 36 H Creatinine 1.18 BUN/Creatinine Ratio 30.5 H Random Glucose 128 H Serum Osmolality 281.9 Lactic Acid 0.9 Calcium 9.8 Total Bilirubin 0.4 AST 24 ALT 22 Alkaline Phosphatase 26 L Creatine Kinase 140 CK-MB (CK-2) 5.5 H* CK-MB (CK-2) % 3.93 Troponin I 0.04 B-Natriuretic Peptide 71.4 Serum Total Protein 6.9 Albumin 3.8 Globulin 3.1 Albumin/Globulin Ratio 1.2 chest x-ray shows mildly hyperinflated lung ludwig. No overt pneumonia. No significant fluid overload. No mass. EKG is consistent with her EKG from 6 months ago showing a normal sinus rhythm with a mild first-degree AV block along with a right bundle branch block. No acute ST segment or T-wave changes today in comparison to previous. Departure - Departure Clinical Impression: Hypoxia Acute bronchitis Qualifiers: Bronchitis organism: unspecified organism Qualified Code(s): J20.9 - Acute bronchitis, unspecified Disposition: Transfer to Hospital Departure Forms: ED Discharge - Pt. Copy, Patient Portal Self Enrollment Referrals: Jong Howard MD [Primary Care Provider] - 1-2 Weeks Home Medications: Ambulatory Orders Azilsartan Medoxomil-Chlorthal [Edarbyclor] 1 tab PO DAILY 01/27/19 Digoxin [Digox] 1 tablet PO DAILY 01/27/19 Levothyroxine Sodium [Euthyrox] 100 mcg PO DAILY 01/27/19 Lovastatin 1 tablet PO DAILY 01/27/19 Metoprolol Tartrate [Lopressor] 25 tablet PO BID 01/27/19 Pantoprazole Tablet [Protonix] 40 mg PO ACBK 01/27/19 Propylene Glycol (Ophth) [Systane Balance Restorati] 0.6 % OP BID 01/27/19 diphenhydrAMINE HCL [Benadryl] 25 mg PO BEDTIME PRN 01/27/19 Amlodipine Besylate 10 mg PO DAILY 02/01/19 Aspirin [Aspirin Adult Low Dose] 81 mg PO DAILY 02/01/19 Transfer to Outside Facility - Transfer Information Decision to Transfer Date: 08/29/19 Decision to Transfer Time: 19:13 Reason for Transfer: specialized care not available Accepting Provider:: dr carrasquillo Accepting Facility: [facility]
[2019-08-29 19:44] VITALS: BP 158/57; TEMP 97.6; O2SAT 94
[2019-08-29] MEDS ORDERED: POTASSIUM CHLORIDE 20 MEQ TAB PO ONE (20:03)
== END 2019-08-29 20:12 | disposition short-term general hospital (02) ==
LOC: ER 15:14
DX: J20.9 Acute bronchitis, unspecified (principal); R09.02 Hypoxemia; I44.0 Atrioventricular block, first degree; I45.10 Unspecified right bundle-branch block; I50.9 Heart failure, unspecified; I11.0 Hypertensive heart disease with heart failure; F03.90 Unspecified dementia, unspecified severity, without behavioral disturbance, psychotic disturbance, mood disturbance, and anxiety; E03.9 Hypothyroidism, unspecified; Z86.73 Personal history of transient ischemic attack (TIA), and cerebral infarction without residual deficits; Z79.899 Other long term (current) drug therapy; Z79.82 Long term (current) use of aspirin
CPT/HCPCS: 36415; 71046; 80053; 82550; 82553; 83605; 83880; 84484; 85025; 87040; 87502; 93005; 94640; J0456; J7050; J7620